=== PATIENT | male | born 1990 | race Caucasian/White ===

== ENCOUNTER 2021-06-21 09:21 | Emergency (ER) | payer OTHER ==
[~2021-06-21] VITALS: Ht 182.9 cm; Wt 95.5 kg
[2021-06-21 12:09] VITALS: BP 122/101
== END 2021-06-21 12:00 ==
LOC: EEVIPCON 09:22 → ER 09:22
DX: M25.561 Pain in right knee (principal); W10.9XXA Fall (on) (from) unspecified stairs and steps, initial encounter; Y93.89 Activity, other specified; Y92.89 Other specified places as the place of occurrence of the external cause; Y99.8 Other external cause status
CPT/HCPCS: 70450; 72125; 73560; 74176; 99284